=== PATIENT | male | born 1965 | race Caucasian/White ===

== ENCOUNTER 2020-01-17 20:02 | Emergency (ER) | payer MEDICAID ==
[~2020-01-17] VITALS: Ht 172.7 cm; Wt 80.0 kg
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
[2020-01-17] MEDS ORDERED: MIDAZOLAM 1 MG/ML, 2ML ONE (20:21)
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
[2020-01-17] MEDS ORDERED: MIDAZOLAM 1 MG/ML, 5ML IVPush ONE (20:30)
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
[2020-01-17] MEDS ORDERED: MIDAZOLAM 1 MG/ML, 2ML IVPush ONE (21:00)
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
--- NOTE | 2020-01-17 21:37 | NUR ---
PT PROVIDED RN WITH BROTHER'S NAME AND PHONE NUMBER, TANO VERDUGO [phone], PER PT BROTHER IS EMERGENCY CONTACT.
--- NOTE | 2020-01-17 22:00 | NUR ---
PT PROVIDED RN WITH 'S PHONE NUMBER, PATRICIA [phone].
--- NOTE | 2020-01-17 22:31 | NUR ---
PROVIDED PT WITH SNACK, UPPER DENTURES AT BEDSIDE.
[2020-01-17 23:36] VITALS: BP 139/84
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
--- NOTE | 2020-01-18 00:28 | NUR ---
RN LEFT VM MESSAGE FOR , AND PT'S BROTHER TANO VERDUGO.
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
--- NOTE | 2020-01-18 01:02 | NUR ---
AMBULATED TO THE RESTROOM WITH ASSISTANCE.
--- NOTE | 2020-01-18 01:36 | NUR ---
SATURATION DOWN TO 79% ON RA, PLACED BACK ON 3L NC.
== END 2020-01-18 05:00 | disposition home or self-care (01) ==
LOC: ED 20:30
DX: F23 Brief psychotic disorder (principal); F17.210 Nicotine dependence, cigarettes, uncomplicated; Z72.9 Problem related to lifestyle, unspecified
CPT/HCPCS: 96374; 99283; 99406; J2250